=== PATIENT | female | born 1995 | race Caucasian/White ===

== ENCOUNTER 2018-05-30 10:15 | Emergency (ER) | payer BC, OTHER ==
[2018-05-30 11:02] VITALS: BP 141/83
--- NOTE | 2018-05-30 12:05 | UC ---
Throat Pain/Nasal Christian HPI - HPI Summary HPI Summary: 23-year-old woman comes in with runny nose and sore throat cough chest congestion. She's had upper respiratory tract infection symptoms for one month and gotten much worse over the last 2-3 days. Her breathing is much more difficult now. Her tonsils are much more swollen now. She feels ill but she has not been sleeping excessively. She's had asthma in the past but she does not have an inhaler at this time. - History of Current Complaint Chief Complaint: UCRespiratory Stated Complaint: COUGH,ST Time Seen by Provider: 05/30/18 11:52 Hx Last Menstrual Period: unknown, IUD Pain Intensity: 4 - Allergies/Home Medications Allergies/Adverse Reactions: Allergies Allergy/AdvReac Type Severity Reaction Status Date / Time Penicillins Allergy Hives Verified 05/30/18 10:57 pet dander Allergy Hives Uncoded 05/30/18 10:57 Home Medications: Home Medications D-Methorphan/PE/Acetaminophen [Theraflu Expressmax Sever 10-5-325 mg] 1 tab PO DAILY 05/30/18 [History Confirmed 05/30/18] PMH/Surg Hx/FS Hx/Imm Hx Respiratory History: Asthma - Surgical History Surgical History: Yes Surgery Procedure, Year, and Place: dental surgery - Family History Known Family History: Positive: Diabetes - Social History Alcohol Use: Rare Substance Use Type: None Smoking Status (MU): Never Smoked Tobacco Review of Systems Constitutional: Chills Skin: Negative Eyes: Negative ENT: Sore Throat, Nasal Discharge, Sinus Congestion, Sinus Pain/Tenderness Respiratory: Shortness Of Breath, Cough Cardiovascular: Negative Gastrointestinal: Negative Motor: Negative Neurovascular: Negative Musculoskeletal: Negative Neurological: Negative Psychological: Negative Is Patient Immunocompromised?: No All Other Systems Reviewed And Are Negative: Yes Physical Exam Triage Information Reviewed: Yes Appearance: No Pain Distress, Well-Nourished, Ill-Appearing - MILD Vital Signs: Initial Vital Signs Temp 98 F 05/30/18 10:54 Pulse 110 05/30/18 10:54 Resp 22 05/30/18 10:54 BP 141/83 05/30/18 10:54 Pulse Ox 96 05/30/18 10:54 Vital Signs Reviewed: Yes Eye Exam: Normal Eyes: Positive: Conjunctiva Clear ENT: Positive: Pharyngeal erythema, Nasal congestion, Nasal drainage, Tonsillar swelling - 3+ B/L Respiratory: Positive: No respiratory distress, Rhonchi Cardiovascular: Positive: Tachycardia Musculoskeletal Exam: Normal Musculoskeletal: Positive: Strength Intact, ROM Intact, No Edema Neurological Exam: Normal Neurological: Positive: Alert, Muscle Tone Normal Psychological Exam: Normal Psychological: Positive: Age Appropriate Behavior Skin Exam: Normal Throat Pain/Nasal Course/Dx - Course Course Of Treatment: Patient's been ill for a whole month. Symptoms have worsened over the last couple of days therefore I will treat with antibiotic. Her tonsils are quite large so therefore I'm going to treat with a brief course of steroids. She's not excessively tired so therefore mononucleosis is unlikely however it is still possible. Also doing a prescription for albuterol. We also discussed she does not get better she should get rechecked to include the possibility of mononucleosis. - Differential Dx/Diagnosis Provider Diagnoses: BRONCHITIS. TONSILLITIS Discharge - Sign-Out/Discharge Documenting (check all that apply): Patient Departure All imaging exams completed and their final reports reviewed: No Studies - Discharge Plan Condition: Stable Disposition: HOME Prescriptions: Albuterol HFA INHALER* [Ventolin HFA Inhaler*] 2 puff INH Q4H PRN #1 mdi PRN Reason: Wheezing Azithromyxin VERNON (NF) [Z-Vernon (Zithromax) 250 mg tabs #6] 2 tab PO .TODAY, THEN 1 DAILY #6 tab predniSONE TAB* [Deltasone 20 MG TAB*] 40 mg PO DAILY #6 tab Patient Education Materials: Tonsillitis (ED), Acute Bronchitis (ED) Forms: *Work Release Referrals: [place] LOFTON,Kevin Miranda [Primary Care Provider] - Additional Instructions: FOLLOW UP WITH YOUR DOCTOR IF NOT COMPLETELY IMPROVED. GET RECHECKED FOR ANY WORSENING OF YOUR CONDITION OR QUESTIONS OR CONCERNS. - Billing Disposition and Condition Condition: STABLE Disposition: Home
== END 2018-05-30 12:18 | disposition home or self-care (01) ==
LOC: EDSEX → UCCORT 10:15
DX: J40 Bronchitis, not specified as acute or chronic (principal); J03.90 Acute tonsillitis, unspecified; R00.0 Tachycardia, unspecified; Z88.0 Allergy status to penicillin
CPT/HCPCS: 99202; G0463

== ENCOUNTER 2018-08-30 17:51 | Emergency (ER) | payer BC ==
[2018-08-30 18:45] VITALS: BP 127/60
--- NOTE | 2018-08-30 19:07 | ED ---
Throat Pain/Nasal Congestion - HPI Summary HPI Summary: 23 yr old with several days of ethmoid sinus congestion, pressure, post nasal drip, sore throat, cough, and bilateral ear pain. She has not had SOB. She states she has had symptoms of sinus congestion for over a month at this point. She denies fever. She gets hives with penicillin. - History of Current Complaint Chief Complaint: UCRespiratory Time Seen by Provider: 08/30/18 18:53 - Allergies/Home Medications Allergies/Adverse Reactions: Allergies Allergy/AdvReac Type Severity Reaction Status Date / Time Penicillins Allergy Severe Hives Verified 08/30/18 18:40 PMH/Surg Hx/FS Hx/Imm Hx Respiratory History: Reports: Hx Asthma - Surgical History Surgery Procedure, Year, and Place: dental surgery Infectious Disease History: No Infectious Disease History: Denies: Traveled Outside the [place] in Last 30 Days - Family History Known Family History: Positive: Diabetes - Social History Alcohol Use: Weekly Substance Use Type: Reports: None Smoking Status (MU): Never Smoked Tobacco Review of Systems Constitutional: Negative Positive: Sore Throat, Ear Ache, Nasal Discharge Positive: Cough All Other Systems Reviewed And Are Negative: Yes Physical Exam Triage Information Reviewed: Yes Vital Signs On Initial Exam: Initial Vitals Temp Pulse Resp BP Pulse Ox 98.2 F 98 16 127/60 100 08/30/18 18:41 08/30/18 18:41 08/30/18 18:41 08/30/18 18:41 08/30/18 18:41 Vital Signs Reviewed: Yes Appearance: Positive: Well-Appearing, No Pain Distress Skin: Positive: Warm, Skin Color Reflects Adequate Perfusion Head/Face: Positive: Normal Head/Face Inspection Eyes: Positive: EOMI ENT: Positive: Pharyngeal erythema, Nasal congestion, Nasal drainage, TM red - bilateral, Sinus tenderness Neck: Positive: Nontender Respiratory/Lung Sounds: Positive: Clear to Auscultation, Breath Sounds Present Cardiovascular: Positive: RRR. Negative: Murmur Abdomen Description: Negative: Distended Musculoskeletal: Positive: Strength/ROM Intact Neurological: Positive: Sensory/Motor Intact, Alert, Oriented to Person Place, Time, CN Intact II-III, Normal Gait, Speech Normal Psychiatric: Positive: Normal Diagnostics - Vital Signs Vital Signs Temp Pulse Resp BP Pulse Ox 08/30/18 18:41 98.2 F 98 16 127/60 100 - Laboratory Lab Statement: Any lab studies that have been ordered have been reviewed, and results considered in the medical decision making process. EENT Course/Dx - Course Course Of Treatment: 23 yr old female with sinus congestion, post nasal drip, coughing. Rx with Biaxin. Fu with PMD - Diagnoses Provider Diagnoses: Sinusitis Discharge - Sign-Out/Discharge Documenting (check all that apply): Patient Departure All imaging exams completed and their final reports reviewed: No Studies - Discharge Plan Condition: Good Disposition: HOME Prescriptions: Clarithromycin TAB* [Biaxin 500 MG TAB*] 500 mg PO BID #20 tab Patient Education Materials: Sinusitis (ED) Referrals: [place] LOFTON,Kevin Miranda [Primary Care Provider] - 2 Days - Billing Disposition and Condition Condition: GOOD Disposition: Home
== END 2018-08-30 19:11 | disposition home or self-care (01) ==
LOC: UCCORT 17:51
DX: J32.9 Chronic sinusitis, unspecified (principal); Z88.0 Allergy status to penicillin
CPT/HCPCS: 99212; G0463

== ENCOUNTER 2018-11-19 12:31 | Emergency (ER) | payer BC ==
[2018-11-19 13:46] VITALS: BP 125/69
--- NOTE | 2018-11-19 14:50 | ED ---
Throat Pain/Nasal Congestion - HPI Summary HPI Summary: 23 yr old female with the complaint of feeling off balance, a little dizzy as describes as things moving, bilateral ear pain right worse than left, and sinus congestion, post nasal drip. Onset of symptoms was over the past week. - History of Current Complaint Chief Complaint: UCDizziness Time Seen by Provider: 11/19/18 14:41 - Allergies/Home Medications Allergies/Adverse Reactions: Allergies Allergy/AdvReac Type Severity Reaction Status Date / Time Penicillins Allergy Severe Hives Verified 11/19/18 13:42 Home Medications: Home Medications Iud 1 each .ROUTE ONCE 11/19/18 [History] PMH/Surg Hx/FS Hx/Imm Hx Respiratory History: Reports: Hx Asthma - Surgical History Surgery Procedure, Year, and Place: dental surgery Infectious Disease History: No Infectious Disease History: Denies: Traveled Outside the [place] in Last 30 Days - Family History Known Family History: Positive: Diabetes - Social History Alcohol Use: Occasionally Substance Use Type: Reports: None Smoking Status (MU): Never Smoked Tobacco Review of Systems Constitutional: Negative Positive: Ear Ache, Nasal Discharge Neurological: Other - feels like things moving and equilibrium off Negative: Headache All Other Systems Reviewed And Are Negative: Yes Physical Exam Triage Information Reviewed: Yes Vital Signs On Initial Exam: Initial Vitals Temp Pulse Resp BP Pulse Ox 97.8 F 100 20 125/69 100 11/19/18 13:40 11/19/18 13:40 11/19/18 13:40 11/19/18 13:40 11/19/18 13:40 Vital Signs Reviewed: Yes Appearance: Positive: Well-Appearing, No Pain Distress Skin: Positive: Warm, Skin Color Reflects Adequate Perfusion Head/Face: Positive: Normal Head/Face Inspection Eyes: Positive: EOMI ENT: Positive: Pharynx normal, Nasal congestion, Nasal drainage, TM red - right more than left with effusion Respiratory/Lung Sounds: Positive: Clear to Auscultation, Breath Sounds Present Cardiovascular: Positive: RRR. Negative: Murmur Abdomen Description: Negative: Distended Musculoskeletal: Positive: Strength/ROM Intact Neurological: Positive: Sensory/Motor Intact, Alert, Oriented to Person Place, Time, CN Intact II-III, Normal Gait, Speech Normal Psychiatric: Positive: Normal - Francia Coma Scale Best Eye Response: 4 - Spontaneous Best Motor Response: 6 - Obeys Commands Best Verbal Response: 5 - Oriented Coma Scale Total: 15 Diagnostics - Vital Signs Vital Signs Temp Pulse Resp BP Pulse Ox 11/19/18 13:40 97.8 F 100 20 125/69 100 - Laboratory Lab Statement: Any lab studies that have been ordered have been reviewed, and results considered in the medical decision making process. EENT Course/Dx - Course Course Of Treatment: 23 yr old female with Otitis media and vertigo. Rx with zithromax and antivert. - Diagnoses Provider Diagnoses: Vertigo, Otitis media Discharge - Sign-Out/Discharge Documenting (check all that apply): Patient Departure All imaging exams completed and their final reports reviewed: No Studies - Discharge Plan Condition: Good Disposition: HOME Prescriptions: Azithromycin TAB* [Zithromax TAB (Z-SAI) 250 mg #6 tabs] 2 tab PO .TODAY, THEN 1 DAILY #1 sai Meclizine TAB* [Antivert 12.5 TAB*] 12.5 mg PO TID PRN #14 tab PRN Reason: Dizziness Patient Education Materials: Vertigo (ED), Ear Infection (ED) Referrals: [place] LOFTON,Kevin Miranda [Primary Care Provider] - 2 Days - Billing Disposition and Condition Condition: GOOD Disposition: Home
== END 2018-11-19 14:55 | disposition home or self-care (01) ==
LOC: UCCORT 12:31
DX: R42 Dizziness and giddiness (principal); H66.93 Otitis media, unspecified, bilateral; R09.81 Nasal congestion; R09.82 Postnasal drip; J45.909 Unspecified asthma, uncomplicated; Z88.0 Allergy status to penicillin
CPT/HCPCS: 99212; G0463

== ENCOUNTER 2019-03-25 17:05 | Emergency (ER) | payer BC ==
[2019-03-25 17:18] VITALS: BP 143/73
--- NOTE | 2019-03-25 17:40 | ED ---
Lower Extremity - HPI Summary HPI Summary: 23 yr old female with the complaint of bilateral heel pain. Onset over the past couple of weeks. The patient has pain that is worse with walking. She has not had trauma or falls. No falls from a height or jumps. No obvious twists or falls. No other complaints. - History of Current Complaint Chief Complaint: UCLowerExtremity Stated Complaint: BILATERAL FOOT PAIN Time Seen by Provider: 03/25/19 17:30 Hx Last Menstrual Period: IUD Pain Intensity: 9 - Allergies/Home Medications Allergies/Adverse Reactions: Allergies Allergy/AdvReac Type Severity Reaction Status Date / Time Penicillins Allergy Severe Hives Verified 03/25/19 17:18 PMH/Surg Hx/FS Hx/Imm Hx Respiratory History: Reports: Hx Asthma - Surgical History Surgery Procedure, Year, and Place: dental surgery Infectious Disease History: No Infectious Disease History: Denies: Traveled Outside the [place] in Last 30 Days - Family History Known Family History: Positive: Diabetes - Social History Alcohol Use: Occasionally Substance Use Type: Reports: None Smoking Status (MU): Never Smoked Tobacco Review of Systems Constitutional: Negative Positive: Other - bilateral heel pain All Other Systems Reviewed And Are Negative: Yes Physical Exam Triage Information Reviewed: Yes Vital Signs On Initial Exam: Initial Vitals Temp Pulse Resp BP Pulse Ox 97.8 F 102 15 143/73 98 03/25/19 17:15 03/25/19 17:15 03/25/19 17:15 03/25/19 17:15 03/25/19 17:15 Vital Signs Reviewed: Yes Appearance: Positive: Obese Skin: Positive: Warm, Skin Color Reflects Adequate Perfusion Head/Face: Positive: Normal Head/Face Inspection Eyes: Positive: EOMI ENT: Positive: Normal ENT inspection Neck: Positive: Nontender Respiratory/Lung Sounds: Positive: Clear to Auscultation, Breath Sounds Present Cardiovascular: Positive: RRR, Pulses are Symmetrical in both Upper and Lower Extremities Abdomen Description: Negative: Distended Musculoskeletal: Positive: Strength/ROM Intact, Other - ankle are symmetric, no effusion, no bone tenderness. She has symmetry to both achilles tendons and both heel areas. No redness, no increased warmth. Neurological: Positive: Sensory/Motor Intact, Alert, Oriented to Person Place, Time, CN Intact II-III, Normal Gait, Speech Normal Psychiatric: Positive: Normal Diagnostics - Vital Signs Vital Signs Temp Pulse Resp BP Pulse Ox 07/29/19 17:15 97.8 F 102 15 143/73 98 - Laboratory Lab Statement: Any lab studies that have been ordered have been reviewed, and results considered in the medical decision making process. - Radiology bilateral heels Radiology Interpretation Completed By: Radiologist - bilateral spurs Lower Extremity Course/Dx - Course Course Of Treatment: Bilateral heel spurs. DC home. - Diagnoses Provider Diagnoses: Heel spur, Hypertension Discharge - Sign-Out/Discharge Documenting (check all that apply): Patient Departure All imaging exams completed and their final reports reviewed: Yes - Discharge Plan Condition: Good Disposition: HOME Patient Education Materials: Heel Spur (ED), Hypertension (ED) Referrals: [place] LOFTON,Kevin Miranda [Primary Care Provider] - 2 Days Genaro Narvaez MD [Medical Doctor] - 5 Days - Billing Disposition and Condition Condition: GOOD Disposition: Home
== END 2019-03-25 18:23 | disposition home or self-care (01) ==
LOC: UCCORT 17:05
DX: M77.32 Calcaneal spur, left foot (principal); M77.31 Calcaneal spur, right foot
CPT/HCPCS: 99211; G0463

== ENCOUNTER 2019-06-11 16:14 | Emergency (ER) | payer BC ==
[2019-06-11 16:27] VITALS: BP 124/80
--- NOTE | 2019-06-11 16:36 | UC ---
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 No fever. Has been using albuterol off and on, up to 2x per day. Non- smoker, but does get some exposure. - History of Current Complaint Stated Complaint: COUGH Time Seen by Provider: 06/11/19 16:24 Hx Obtained From: Patient Hx Last Menstrual Period: IUD Onset/Duration: Sudden Onset, Lasting Days - 8 Timing: Intermittent Episodes Severity Initially: Moderate Severity Currently: Moderate Pain Intensity: 7 Character: Cough: Nonproductive Aggravating Factors: Exertion, Deep Breaths, Recumbent Position Alleviating Factors: Bronchodilator Associated Signs And Symptoms: Positive: Dyspnea, Wheezing, URI, Nasal Congestion, Hoarseness - Risk Factors Pulmonary Embolism Risk Factors: Negative Cardiac Risk Factors: Negative Pseudomonas Risk Factors: Negative Tuberculosis Risk Factors: Negative - Allergies/Home Medications Allergies/Adverse Reactions: Allergies Allergy/AdvReac Type Severity Reaction Status Date / Time Penicillins Allergy Severe Hives Verified 06/11/19 16:27 Home Medications: Home Medications Ibuprofen TAB* [Advil TAB*] 2 tab PO ONCE 06/11/19 [History Confirmed 06/11/19] guaiFENesin [Mucinex] 1 tab PO DAILY 06/11/19 [History Confirmed 06/11/19] PMH/Surg Hx/FS Hx/Imm Hx Previously Healthy: Yes - overweight Respiratory History: Asthma - mild, does not use corticosteroid - Surgical History Surgical History: Yes Surgery Procedure, Year, and Place: dental surgery - Family History Known Family History: Positive: Diabetes, Other - parents living and healthy Negative: Respiratory Disease - Social History Occupation: Employed Full-time Lives: With Family Alcohol Use: Weekly Substance Use Type: None Smoking Status (MU): Never Smoked Tobacco Review of Systems All Other Systems Reviewed And Are Negative: Yes Constitutional: Positive: Fatigue Skin: Positive: Negative ENT: Positive: Sore Throat, Nasal Discharge, Sinus Congestion Respiratory: Positive: Shortness Of Breath, Cough Cardiovascular: Negative: Palpitations, Chest Pain Gastrointestinal: Positive: Negative Genitourinary: Positive: Negative Motor: Positive: Negative Neurovascular: Positive: Negative Musculoskeletal: Positive: Negative Neurological: Positive: Headache Psychological: Positive: Negative Is Patient Immunocompromised?: No Physical Exam Triage Information Reviewed: Yes Appearance: No Pain Distress, Ill-Appearing - congested, looks fatigued and unwell, Obese Vital Signs: Initial Vital Signs Temp 98.4 F 06/11/19 16:22 Pulse 101 06/11/19 16:22 Resp 18 06/11/19 16:22 BP 124/80 06/11/19 16:22 Pulse Ox 100 06/11/19 16:22 Eyes: Positive: Conjunctiva Clear ENT: Positive: Pharyngeal erythema, Tonsillar swelling. Negative: Tonsillar exudate Dental Exam: Normal Neck: Positive: Supple, Nontender, No Lymphadenopathy Respiratory: Positive: Decreased breath sounds, Crackles - dry crackles both bases.. Negative: Wheezing Cardiovascular Exam: Normal Cardiovascular: Positive: RRR, No Murmur Bowel Sounds: Positive: Present Musculoskeletal Exam: Normal Neurological Exam: Normal Psychological Exam: Normal Skin Exam: Normal Respiratory Course/Dx - Course Course Of Treatment: Doxycycline for treatment of lower respiratory illness/sinusitis. Continue use of albuterol. - Differential Dx/Diagnosis Differential Diagnosis/HQI/PQRI: Bronchitis, Lower Resp Infection, Sinusitis Provider Diagnosis: Lower respiratory infection Discharge ED - Sign-Out/Discharge Documenting (check all that apply): Patient Departure All imaging exams completed and their final reports reviewed: No Studies - Discharge Plan Condition: Stable Disposition: HOME Prescriptions: Doxycycline Hyclate 100 mg PO BID #14 tablet Patient Education Materials: Sinusitis (ED) Referrals: [place] LOFTON,Kevin Miranda [Primary Care Provider] - Additional Instructions: You should see improvement in sinus congestion and cough with use of doxycycline. Continue use of albuterol, and ensure that you dose before bed to help with cough. You might try use of Delsym syrup as a cough suppressant. - Billing Disposition and Condition Condition: STABLE Disposition: Home
== END 2019-06-11 16:50 | disposition home or self-care (01) ==
LOC: UCCORT 16:14
DX: J22 Unspecified acute lower respiratory infection (principal); J45.909 Unspecified asthma, uncomplicated; Z88.0 Allergy status to penicillin
CPT/HCPCS: 99212; G0463

== ENCOUNTER 2019-08-26 15:28 | Emergency (ER) | payer BC ==
[2019-08-26 15:59] VITALS: BP 134/75
--- NOTE | 2019-08-26 16:11 | UC ---
Throat Pain/Nasal Christian HPI - HPI Summary HPI Summary: 24-year-old asthmatic female who has had head congestion and sinus symptoms for the past month over the past few days she has developed some coughing and wheezing. She has been using an inhaler but does not have a nebulizer at home. She thinks she's had a fever however that does not register here. - History of Current Complaint Chief Complaint: UCRespiratory Stated Complaint: COUGH Time Seen by Provider: 08/26/19 16:10 Hx Obtained From: Patient Hx Last Menstrual Period: IUD ?: No Onset/Duration: Gradual Onset Severity: Mild Pain Intensity: 2 Cough: Nonproductive Associated Signs & Symptoms: Positive: Wheezing, Sinus Discomfort, Nasal Discharge - Allergies/Home Medications Allergies/Adverse Reactions: Allergies Allergy/AdvReac Type Severity Reaction Status Date / Time Penicillins Allergy Severe Hives Verified 08/26/19 15:54 PMH/Surg Hx/FS Hx/Imm Hx Previously Healthy: Yes Respiratory History: Asthma - Surgical History Surgical History: Yes Surgery Procedure, Year, and Place: dental surgery - Family History Known Family History: Positive: Diabetes, Other - parents living and healthy Negative: Respiratory Disease - Social History Lives: With Family Alcohol Use: Weekly Substance Use Type: None Smoking Status (MU): Never Smoked Tobacco Review of Systems All Other Systems Reviewed And Are Negative: Yes Constitutional: Positive: Fever - Patient feels like she's had a fever however has not taken her temperature. ENT: Positive: Nasal Discharge, Sinus Congestion, Sinus Pain/Tenderness Respiratory: Positive: Shortness Of Breath, Cough - Coughing with wheezing. She states she was at work today and she felt somewhat short of breath with wheezing. Is Patient Immunocompromised?: No Physical Exam Triage Information Reviewed: Yes Appearance: Well-Appearing, No Pain Distress, Well-Nourished Vital Signs: Initial Vital Signs Temp 98.4 F 08/26/19 15:54 Pulse 117 08/26/19 15:54 Resp 18 08/26/19 15:54 BP 134/75 08/26/19 15:54 Pulse Ox 97 08/26/19 15:54 Vital Signs Reviewed: Yes Eyes: Positive: Conjunctiva Clear ENT: Positive: Pharynx normal, Nasal drainage - Clear nasal coryza., TMs normal , Sinus tenderness - Mild maxillary sinus tenderness., Uvula midline Neck: Positive: Supple, Nontender, No Lymphadenopathy Respiratory: Positive: No respiratory distress, No accessory muscle use, Rhonchi , Wheezing Cardiovascular Exam: Normal Cardiovascular: Positive: RRR, No Murmur, Pulses Normal, Brisk Capillary Refill Musculoskeletal Exam: Normal Neurological Exam: Normal Psychological Exam: Normal Skin Exam: Normal Throat Pain/Nasal Course/Dx - Course Course Of Treatment: DuoNeb treatment: Patient states she has increased air movement and feels like she is taking better breaths. Chest x-ray:Indication: Asthma. 2 views of the chest are reviewed. There is airspace disease in the left base. This is suspicious for pneumonia. IMPRESSION : Findings suspicious for pneumonia. I'm going to treat her pneumonia as well as her sinusitis with doxycycline and she does not have a primary care provider in [place] however the physician referral line information card was given to her so she can establish care. Her primary care provider is in [place] and she doesn't think she can get there for recheck if needed. She is to go the emergency room for any worsening symptoms. - Differential Dx/Diagnosis Provider Diagnosis: Sinusitis, Pneumonia Discharge ED - Sign-Out/Discharge Documenting (check all that apply): Patient Departure All imaging exams completed and their final reports reviewed: Yes - Discharge Plan Condition: Fair Disposition: HOME Prescriptions: DOXYcycline CAP(*) [DOXYcycline 100MG CAP(*)] 100 mg PO BID 10 Days #20 cap Patient Education Materials: Sinusitis (ED), Pneumonia (ED) Forms: *Work Release Referrals: [place] LOFTON,Kevin Miranda [Primary Care Provider] - Additional Instructions: continue to use her albuterol inhaler 2 puffs every 4-6 hours as needed for wheezing or tight cough. no antacids, dairy products or multivitamins 2 hours before you take doxycycline and 2 hours after you take it however take it with food. definite follow-up with your primary care provider in 3-4 days if no improvement. go to the emergency room if you have any worsening symptoms. - Billing Disposition and Condition Condition: FAIR Disposition: Home
[2019-08-26] MEDS ORDERED: Albuterol/Ipratropium NEB.SOL* Albuterol 2.5 MG/Ipratropium 0.5 MG 3 ML INH ONE (16:16)
== END 2019-08-26 17:18 | disposition home or self-care (01) ==
LOC: UCCORT 15:28
DX: J32.9 Chronic sinusitis, unspecified (principal); J18.9 Pneumonia, unspecified organism; J45.909 Unspecified asthma, uncomplicated
CPT/HCPCS: 71046; 99212; A9270-GY; G0463

== ENCOUNTER 2019-09-28 14:46 | Emergency (ER) | payer BC ==
[2019-09-28 15:20] VITALS: BP 132/76
--- NOTE | 2019-09-28 15:51 | UC ---
Respiratory Complaint HPI - HPI Summary HPI Summary: Upper respiratory complaint for about a week. Has a cough. Very congested in the morning and as the day goes on, it gets to be a dry cough. Left eye goopy and crusty when she gets up. Dx with pneumonia about a month ago, just finished taking doxy. - History of Current Complaint Chief Complaint: UCGeneralIllness Stated Complaint: UPPER RESPIRATORY Time Seen by Provider: 09/28/19 15:51 Hx Obtained From: Patient Hx Last Menstrual Period: IUD Pain Intensity: 1 - Allergies/Home Medications Allergies/Adverse Reactions: Allergies Allergy/AdvReac Type Severity Reaction Status Date / Time Penicillins Allergy Severe Hives Verified 09/28/19 15:20 Home Medications: Home Medications Phenyleph/Acetaminophn/Doxylam [Sinus Daytime/Nighttime] 2 cap PO ONCE PRN 09/28 [History Confirmed 09/28/19] PMH/Surg Hx/FS Hx/Imm Hx Previously Healthy: Yes - Surgical History Surgical History: Yes Surgery Procedure, Year, and Place: dental surgery - Family History Known Family History: Positive: Diabetes, Other - parents living and healthy Negative: Respiratory Disease - Social History Alcohol Use: Weekly Substance Use Type: None Smoking Status (MU): Never Smoked Tobacco Review of Systems All Other Systems Reviewed And Are Negative: Yes Constitutional: Negative: Fever ENT: Negative: Sore Throat, Sinus Congestion Respiratory: Positive: Cough Neurological: Negative: Headache Physical Exam Triage Information Reviewed: Yes Appearance: Well-Appearing Vital Signs: Initial Vital Signs Temp 98.1 F 09/28/19 15:14 Pulse 98 09/28/19 15:14 Resp 18 09/28/19 15:14 BP 132/76 09/28/19 15:14 Pulse Ox 100 09/28/19 15:14 Vital Signs Reviewed: Yes Eyes: Positive: Conjunctiva Clear ENT: Positive: Pharynx normal, TMs normal, Uvula midline Neck: Positive: Supple, Nontender, No Lymphadenopathy Respiratory Exam: Normal Cardiovascular Exam: Normal Neurological: Positive: Alert Skin: Negative: Rashes Respiratory Course/Dx - Course Course Of Treatment: Tx'd w/ doxy for pneumonia recently and started w/ another cough. likely viral w/ good vitals and lung exam unremarkable. will tx cough symptoms and advised to see her pcp if no improvement. - Differential Dx/Diagnosis Differential Diagnosis/HQI/PQRI: Asthma, Bronchitis, Lower Resp Infection, Other Provider Diagnosis: Cough Discharge ED - Sign-Out/Discharge Documenting (check all that apply): Patient Departure All imaging exams completed and their final reports reviewed: No Studies - Discharge Plan Condition: Good Disposition: HOME Prescriptions: Benzonatate CAP* [Tessalon 100 MG CAP*] 100 mg PO TID 7 Days #21 cap Patient Education Materials: Acute Bronchitis (ED) Referrals: [place] LOFTON,Kevin Miranda [Primary Care Provider] - Additional Instructions: If worsening please return. I do think this is virus and it will resolve on its own soon. - Billing Disposition and Condition Condition: GOOD Disposition: Home
== END 2019-09-28 16:13 | disposition home or self-care (01) ==
LOC: UCCORT 14:46
DX: R05 Cough (principal); Z88.0 Allergy status to penicillin
CPT/HCPCS: 99212; G0463